=== PATIENT | female | born 1975 | race Caucasian/White ===

== ENCOUNTER 2016-11-11 10:46 | Emergency (ER) | payer MEDICAID ==
--- NOTE | 2016-11-11 10:53 | ER Document Report ---
ED Medical Screen (RME) - General Stated Complaint: PYSCH EVALUATION Notes: patient is referred over for mental health evaluation. She was referred over by [facility] for evaluation. patient admits to suicidal ideations but denies a plan, denies homicidal ideations. Admits to drug use. Admits to crack use a couple of hours ago. (+) heroin, marijuana, percocet PMH: depression, anxiety, bipolar and ADHD I have greeted and performed a rapid initial assessment of this patient. A comprehensive ED assessment and evaluation of the patient, analysis of test results and completion of the medical decision making process will be conducted by additional ED providers. TRAVEL OUTSIDE OF THE [place] IN LAST 30 DAYS: No - Related Data Allergies/Adverse Reactions: No Known Allergies Allergy (Verified 11/11/16 10:50) Past Medical History Psychiatric Medical History: Reports: Hx Attention Deficit Hyperactivity Disorder, Hx Bipolar Disorder, Hx Depression Past Surgical History: Reports: Hx Dilation and Curettage - Immunizations Hx Diphtheria, Pertussis, Tetanus Vaccination: No
[2016-11-11 11:29] LABS: ABSOLUTE BASOPHILS # (AUTO) 0.1 10^3/uL (0.0-0.2); ABSOLUTE EOSINOPHILS # (AUTO) 0.2 10^3/uL (0.0-0.6); ABSOLUTE LYMPHOCYTES (AUTO) 1.6 10^3/uL (0.5-4.7); ABSOLUTE MONOCYTES (AUTO) 0.7 10^3/uL (0.1-1.4); ABSOLUTE NEUT (AUTO) 5.6 10^3/uL (1.7-8.2); BASOPHILS % (AUTO) 1.2 % (0-2); EOSINOPHILS % (AUTO) 2.4 % (0-6); HEMATOCRIT 43.6 % (36.0-47.0); HEMOGLOBIN 14.6 g/dL (12.0-15.5); HGB HCT DIFFERENCE 0.2; LYMPHOCYTES % (AUTO) 19.6 % (13-45); MEAN CORPUSCULAR HEMOGLOBIN 29.2 pg (27.0-33.4); MEAN CORPUSCULAR HGB CONC 33.6 g/dL (32.0-36.0); MEAN CORPUSCULAR VOLUME 87 fl (80-97); MONOCYTES % (AUTO) 9.1 % (3-13); RED BLOOD COUNT 5.01 10^6/uL (3.72-5.28); RED CELL DISTRIBUTION WIDTH 13.1 % (11.5-14.0); SEGMENTED NEUTROPHILS % (AUTO) 67.7 % (42-78); WHITE BLOOD COUNT 8.3 10^3/uL (4.0-10.5)
[2016-11-11 11:48] LABS: URINE BARBITURATES SCREEN NEGATIVE; URINE METHADONE SCREEN NEGATIVE; URINE OPIATES LOW UNCONFIRMED POSITIVE; URINE PHENCYCLIDINE SCREEN NEGATIVE
[2016-11-11 11:49] LABS: APPEARANCE,URINE SLIGHTLY-CLOUDY; BILIRUBIN,URINE NEGATIVE (NEGATIVE); GLUCOSE, URINE NEGATIVE (NEGATIVE); KETONES,URINE TRACE mg/dL (NEGATIVE); LEUKOCYTE ESTERASE,URINE SMALL (NEGATIVE); NITRITE,URINE NEGATIVE (NEGATIVE); PROTEIN,URINE 30 mg/dL (NEGATIVE); URINE SPECIFIC GRAVITY 1.035
[2016-11-11 11:55] LABS: ALANINE AMINOTRANSFERASE 19 U/L (9-52); ALBUMIN 4.1 g/dL (3.5-5.0); ALKALINE PHOSPHATASE 64 U/L (38-126); ANION GAP 11 (5-19); ASPARTATE AMINO TRANSFERASE 13 U/L (14-36); BILIRUBIN,TOTAL 0.4 mg/dL (0.2-1.3); BLOOD UREA NITROGEN 14 mg/dL (7-20); CALCIUM 9.9 mg/dL (8.4-10.2); CARBON DIOXIDE 22 mmol/L (22-30); CHLORIDE 108 mmol/L (98-107); CREATININE RESULT 0.88 mg/dL (0.52-1.25); GLUCOSE 89 mg/dL (75-110); POTASSIUM 4.4 mmol/L (3.6-5.0); SODIUM 140.8 mmol/L (137-145); TOTAL PROTEIN 7.3 g/dL (6.3-8.2)
[2016-11-11 11:57] LABS: ALCOHOL < 10 mg/dL (NONE DETECTED)
--- NOTE | 2016-11-11 12:24 | ER Document Report ---
ED General - General Chief Complaint: Altered Mental Status Stated Complaint: PYSCH EVALUATION Time seen by provider: 12:19 Mode of Arrival: Ambulatory Information source: Patient Notes: 41-year-old female reports being followed by [facility] neuropsychiatric services for ADHD anxiety and bipolar disorder and presents now emergency department saying that she's had suicidal thoughts most recently this morning that she is upset about her abuse of illicit drugs or prescription drugs. She reports she used crack this morning. She reports is also abused heroin, cocaine , Percocet, and marijuana. She also reports she takes more of her prescribed medications that she should. She denies homicidal ideation or audiovisual hallucinations and says that she does not have a plan for self-harm. She reports being in normal state of health otherwise recently. Was recently diagnosed with UTI Physical Exam: General: Alert, appears well. HEENT: Normocephalic. Atraumatic. PERRLA. Extraocular movements intact. Oropharynx clear. Neck: Supple. Non-tender. Respiratory: No respiratory distress. Clear and equal breath sounds bilaterally. Cardiovascular: Regular rate and rhythm. Abdominal: Normal Inspection. Soft, non-tender. No distension. Normal Bowel Sounds. Back: Non-tender. No deformity or step off. Extremities: Moves all four extremities. Upper extremities: Normal inspection. Non-tender. Normal color. Normal ROM. Normal temperature. Lower extremities: Normal inspection. Non-tender. No edema. Normal color. Normal ROM. Normal temperature. Neurological: Speech clear mentation normal moves all extremities well Psychological: Normal affect. Tearful Skin: Warm. Dry. Normal color. TRAVEL OUTSIDE OF THE [place] IN LAST 30 DAYS: No - Related Data Allergies/Adverse Reactions: No Known Allergies Allergy (Verified 11/11/16 10:50) Past Medical History - Social History Smoking Status: Current Every Day Smoker Chew tobacco use (# tins/day): No Frequency of alcohol use: Rare Drug Abuse: Cocaine, Heroin, Marijuana Family History: Other - Patient reports extensive psychiatric history on her mother's side Patient has suicidal ideation: Yes Patient has homicidal ideation: No Renal/ Medical History: Denies: Hx Peritoneal Dialysis Psychiatric Medical History: Reports: Hx Attention Deficit Hyperactivity Disorder, Hx Bipolar Disorder, Hx Depression Past Surgical History: Reports: Hx Dilation and Curettage - Immunizations Hx Diphtheria, Pertussis, Tetanus Vaccination: No Review of Systems - Review of Systems Constitutional: denies: Chills, Fever EENT: denies: Ear pain, Throat pain Cardiovascular: denies: Chest pain, Dyspnea Respiratory: denies: Cough, Short of breath Gastrointestinal: denies: Abdominal pain, Diarrhea, Nausea, Vomiting Genitourinary: denies: Burning Female Genitourinary: denies: Musculoskeletal: denies: Back pain Hematologic/Lymphatic: denies: Swollen glands Neurological/Psychological: denies: Weakness, Numbness Physical Exam - Vital signs Vitals: Temp Pulse Resp BP Pulse Ox 97.7 F 76 21 H 150/99 H 98 11/11/16 10:52 11/11/16 10:52 11/11/16 10:52 11/11/16 10:52 11/11/16 10:52 Course - Re-evaluation Re-evalutation: 11/11/16 15:52 Patient is medically clear for mental health evaluation. Mental health evaluation concurs that while she is reporting an desire for suicide she has no plan and can be discharged in care of her with outpatient follow-up at her mental health provider [facility] tomorrow As patient recently been treated for UTI do not need retreatment - Vital Signs Vital signs: Temp Pulse Resp BP Pulse Ox 97.7 F 76 21 H 150/99 H 98 11/11/16 10:52 11/11/16 10:52 11/11/16 10:52 11/11/16 10:52 11/11/16 10:52 - Laboratory Result Diagrams: 11/11/16 11:18 11/11/16 11:18 Laboratory results interpreted by me: 11/11/16 11/11/16 11:18 11:18 Chloride 108 H AST 13 L Urine Protein 30 H Urine Ketones TRACE H Urine Urobilinogen 4.0 H Ur Leukocyte Esterase SMALL H Urine Ascorbic Acid 40 H Acetaminophen < 10 L - EKG Interpretation by Me Additional EKG results interpreted by me: 11/11/16 12:23 EKG reviewed by myself shows sinus rhythm at 69 with no acute changes Discharge - Discharge Clinical Impression: Depression Qualifiers: Depression Type: major depressive disorder Major depression recurrence: recurrent Active/Remission status: currently active Major depression episode severity: unspecified Qualified Code(s): F33.9 - Major depressive disorder, recurrent, unspecified Condition: Stable Disposition: HOME, SELF-CARE Additional Instructions: Depression Your evaluation reveals that you have mental depression. While symptoms may be vague, they often include disturbance of sleep, fatigue, loss of appetite , and general loss of interest in life. While depression may be a side effect of drugs, or a reaction to a major change in your life, many cases have no known cause. If depression is acute, and related to a major loss in your life, you can expect it to clear completely with time. If you have been depressed a long time , are prone to repeated bouts of depression or low mood, or have been thinking of suicide, get help. Depression can be treated with anti-depressant medication and counselling. Long-term depression will often take a few weeks to clear, even with appropriate medication. Follow-up care is important. Contact your physician, the hospital emergency center, crisis line, or your counsellor if you are losing control or having self-destructive thoughts. Referrals: [facility] [Provider Group] - Follow up tomorrow
--- NOTE | 2016-11-11 13:17 | PSYCHOLOGICAL NOTE ---
Psych Note - Psych Note Psych Note: Patient presented to [facility] ED saying that she's had suicidal thoughts most recently this morning that she is upset about her abuse of illicit drugs or prescription drugs. She reports she used crack this morning. She reports is also abused heroin, cocaine, Percocet, and marijuana. She also reports she takes more of her prescribed medications that she should. Patient states that she has out patient mental health with [facility]. She confirms that she is having suicidal thoughts but no plan. She states this is the first time that she is admitting out loud that she needs help with her substance abuse and is unsure if any of her family will believe she wants to get clean. She continued to disclose that she is prescribed Zoloft, Sequel, Valium, and Adderall. She would like to go inpatient for substance abuse. Patient is concerned that if she is unable to get that she will continue using. Patient's , Marc [phone], left message. Patient is alert and orientated to person place time and circumstance patient's mood is euthymic with congruent affect. Patient endorses suicidal ideation but no plan or means or intent patient denies homicidal ideation. Patient denies auditory and visual hallucinations; no delusions are noted. Thought process is logical organized and linear. Conversational speech was within normal rate tone and prosody. Eye contact was well maintained. Intellectual abilities appear to be average range. Attention and concentration are good. Insight, judgment, impulse control are poor. Impression\plan: Patient is psychiatrically cleared for discharge; she does not meet criteria for IVC per [place] GS 122C. Patient received outpatient and inpatient resource lists and discussed plan of making contact with at least 3 facilities by tomorrow. Patient will use her as support system. Patient is psychiatrically cleared for discharge. Dr. Echols was consulted and care management this patient; attending physician is in agreement with recommendations and disposition.
[2016-11-11 16:01] VITALS: BP 107/53
--- NOTE | 2016-11-11 20:05 | EKG REPORT ---
SEVERITY:- NORMAL ECG - SINUS RHYTHM : Confirmed by: Ponce William 11-Nov-2016 20:04:33
== END 2016-11-11 16:25 | disposition home or self-care (01) ==
LOC: ER 10:46
DX: F33.9 Major depressive disorder, recurrent, unspecified (principal); R41.82 Altered mental status, unspecified; F90.9 Attention-deficit hyperactivity disorder, unspecified type; F41.9 Anxiety disorder, unspecified; F31.9 Bipolar disorder, unspecified; F17.210 Nicotine dependence, cigarettes, uncomplicated
CPT/HCPCS: 36415; 80053; 80307; 81001; 84703; 85025; 93005; 93010; 99285

== ENCOUNTER 2018-01-27 10:46 | Emergency (ER) | payer SELFPAY ==
--- NOTE | 2018-01-27 11:11 | ER Document Report ---
ED Medical Screen (RME) - General Chief Complaint: Urinary Frequency Stated Complaint: VAGINAL DISCOMFORT Time Seen by Provider: 01/27/18 11:02 Mode of Arrival: Ambulatory Information source: Patient Notes: 42-year-old female presents to ED for complaint of foul-smelling urine for 2 months with no actual pain with during urination. She states she has a chronic low back pain but she has severe pelvic pain for 2 months. She states she has a IUD and she needs STD checks. States she also needs her IUD checked. Patient does have suprapubic tenderness. Patient self swab for Chlamydia gonorrhea and wet mount. A clean-catch urine was also sent. I have greeted and performed a rapid initial assessment of this patient. A comprehensive ED assessment and evaluation of the patient, analysis of test results and completion of medical decision making process will be conducted by an additional ED providers. TRAVEL OUTSIDE OF THE [place] IN LAST 30 DAYS: No - Related Data Allergies/Adverse Reactions: No Known Allergies Allergy (Verified 11/11/16 10:50) Past Medical History Renal/ Medical History: Denies: Hx Peritoneal Dialysis Psychiatric Medical History: Reports: Hx Attention Deficit Hyperactivity Disorder, Hx Bipolar Disorder, Hx Depression Past Surgical History: Reports: Hx Dilation and Curettage - Immunizations Hx Diphtheria, Pertussis, Tetanus Vaccination: No Physical Exam - Vital signs Vitals: Temp Pulse Resp BP Pulse Ox 98.2 F 81 18 113/83 99 01/27/18 10:54 01/27/18 10:54 01/27/18 10:54 01/27/18 10:54 01/27/18 10:54 Course - Vital Signs Vital signs: Temp Pulse Resp BP Pulse Ox 98.2 F 81 18 113/83 99 01/27/18 10:54 01/27/18 10:54 01/27/18 10:54 01/27/18 10:54 01/27/18 10:54
[2018-01-27 11:33] LABS: BACTERIA (WET MOUNT) 3+ BACTERIA SEEN; EPITHELIALS (WET MOUNT) 3+ EPITHELIALS SEEN; RBCS (WET MOUNT) 1+ RBCS SEEN; T.VAGINALIS (WET MOUNT) NO TRICHOMONAS SEEN; WBCS (WET MOUNT) 2+ WBCS SEEN; YEAST (WET MOUNT) NO YEAST SEEN
[2018-01-27 11:36] LABS: APPEARANCE,URINE CLOUDY; BILIRUBIN,URINE NEGATIVE (NEGATIVE); CALCIUM OXALATE CRYSTALS,URINE MODERATE /HPF; COLOR,URINE YELLOW; GLUCOSE, URINE NEGATIVE (NEGATIVE); KETONES,URINE NEGATIVE (NEGATIVE); LEUKOCYTE ESTERASE,URINE LARGE (NEGATIVE); NITRITE,URINE NEGATIVE (NEGATIVE); PROTEIN,URINE 30 mg/dL (NEGATIVE); URINE SPECIFIC GRAVITY 1.032
[2018-01-27] MEDS ORDERED: LIDOCAINE 1% INJ-PF (10 MG/ML) 30 ML SDV INJ ONE (11:38)
[2018-01-27] MEDS ORDERED: AZITHROMYCIN 250 MG TABLET PO ONE (11:38)
[2018-01-27] MEDS ORDERED: CEFTRIAXONE INJ 250 MG VIAL IM ONE (11:38)
--- NOTE | 2018-01-27 11:50 | ER Document Report ---
HPI - HPI Pain Level: 4 Notes: Patient is a 4-year-old female with a history of IV drug use who presents to the ED complaining of foul-smelling urine, bilateral lower pelvic pain 2 months. Patient states that she does have an IUD in place, that needs to be taken out at some point soon. Patient is sexually active that is unprotected. Patient states that she has not been into follow-up with the health department lately. She is still able to eat and drink, but does have a decreased p.o. intake. Patient states that she is otherwise urinating normally and having normal bowel movements. She denies any drug allergies. Denies any headache, fever, neck pain, URI, sore throat, chest pain, palpitations, syncope, cough, shortness of breath, wheeze, dyspnea, nausea/vomiting/diarrhea, urinary retention, dysuria, hematuria, back pain, loss of control of bowel or bladder, numbness/tingling, saddle anesthesia, muscle paralysis/weakness, or rash. - ROS Systems Reviewed and Negative: Yes All other systems reviewed and negative - REPRODUCTIVE Reproductive: DENIES: : - DERM Skin Color: Normal Past Medical History - General Information source: Patient - Social History Smoking Status: Current Every Day Smoker Chew tobacco use (# tins/day): No Frequency of alcohol use: None Drug Abuse: Cocaine, Marijuana, Other Family History: Other - Patient reports extensive psychiatric history on her mother's side Patient has suicidal ideation: No Patient has homicidal ideation: No Renal/ Medical History: Denies: Hx Peritoneal Dialysis Psychiatric Medical History: Reports: Hx Attention Deficit Hyperactivity Disorder, Hx Bipolar Disorder, Hx Depression Past Surgical History: Reports: Hx Dilation and Curettage - Immunizations Hx Diphtheria, Pertussis, Tetanus Vaccination: No Vertical Provider Document - CONSTITUTIONAL Agree With Documented VS: Yes Notes: PHYSICAL EXAMINATION: GENERAL: Well-appearing, well-nourished and in no acute distress. HEAD: Atraumatic, normocephalic. EYES: Pupils equal round and reactive to light, extraocular movements intact, conjunctiva are normal. ENT: Nares patent, oropharynx clear without exudates. Moist mucous membranes. No tonsillar hypertrophy or erythema. NECK: Normal range of motion, supple without lymphadenopathy LUNGS: Breath sounds clear to auscultation bilaterally and equal. No wheezes rales or rhonchi. HEART: Regular rate and rhythm without murmurs ABDOMEN: Soft, nontender, nondistended abdomen. No guarding, no rebound. No masses appreciated. Normal bowel sounds present. CVA tenderness negative bilaterally. Female ([id number]): No inguinal adenopathy. External genitalia without erythema, lesions, or masses. Vaginal mucosa pink with scant white discharge. Cervix parous, pink, and without discharge. Uterus is smooth. No adnexal tenderness. I did see the string of her IUD coming from the cervix. Extremities: No cyanosis/clubbing/edema b/l. Peripheral pulses 2+. NEUROLOGICAL: Normal speech, normal gait. PSYCH: Normal mood, normal affect. SKIN: Warm, Dry, normal turgor, no rashes or lesions noted. - INFECTION CONTROL TRAVEL OUTSIDE OF THE [place] IN LAST 30 DAYS: No Course - Re-evaluation Re-evalutation: 01/27/18 13:50 Patient is an afebrile, well-hydrated, 42-year-old female who presents to the ED with bacterial vaginosis and gonorrhea. Vitals are acceptable. PE is otherwise unremarkable. See wet mount results. See urinalysis, but I suspect that it is most likely from a gonorrhea as she is otherwise asymptomatic for urination. Chlamydia was negative while gonorrhea was positive. Transvaginal ultrasound was unremarkable for any acute pathology. Even though there is no obvious cervical motion tenderness on exam, patient does have lower pelvic pain , so I will treat her for PID due to the low threshold and high risk lifestyle. Patient was treated with Rocephin IM as well as Zithromax p.o. I will be sending her home with Flagyl and doxycycline as well according to up-to-date for PID treatment. HCG was negative. Patient is tolerating p.o. without difficulties. No other labs or imaging warranted at this time based on H&P. Low suspicion/risk for acute appendicitis, bowel obstruction, acute cholecystitis, acute cholangitis, perforated diverticulitis, incarcerated hernia , pancreatitis, perforated ulcer, peritonitis, sepsis, ectopic , tubo- ovarian abscess, ovarian torsion, or other systemic emergent condition at this time. Patient is aware that her condition can change from initial presentation and she needs to monitor symptoms closely and seek medical attention if any acute changes. Conservative measures otherwise for symptoms. Recheck with OBGYN in 3-5 days. Recheck with your PCM in 3-5 days. Return to the ED with any worsening/concerning symptoms otherwise as reviewed in discharge. Patient is in agreement. - Vital Signs Vital signs: Temp Pulse Resp BP Pulse Ox 98.2 F 81 18 113/83 99 01/27/18 10:54 01/27/18 10:54 01/27/18 10:54 01/27/18 10:54 01/27/18 10:54 - Laboratory Laboratory results interpreted by me: 01/27/18 11:08 Urine Protein 30 H Urine Urobilinogen 2.0 H Ur Leukocyte Esterase LARGE H Urine Ascorbic Acid 20 H Procedures - Pelvic Exam Pelvic exam Time completed: 12:45 - pt performed pre-self swab during her RME. Bimanual exam performed: Yes - negative Witnessed by: Nurse Marcano Discharge - Discharge Clinical Impression: Gonorrhea, Pelvic pain, Bacterial vaginosis Condition: Stable Disposition: HOME, SELF-CARE Instructions: Gonorrhea ([facility]), Doxycycline ([facility]), Pelvic Inflammatory Disease ( [facility]), Vaginosis, Bacterial ([facility]), Metronidazole ([facility]) Additional Instructions: Push fluids (i.e. water, cranberry juice) Proper hygenic technique Keep the skin clean Safe sexual practices with condoms everytime Tylenol/ibuprofen as needed Check in with the health department this week for further testing* Abstain from sexual intercourse for at least 2 weeks and notify your partner(s) Return immediately if symptoms worsen F/u with your PCM in 3-5 days for a recheck Schedule a consult with OBGYN Return to the ED with any development of RUIZ/fever, trouble with vision, eye redness, worsening pain, urethral discharge, urinary retention, blood in the urine, flank pain, abdominal pain, n/v, Chest Pain, shortness of breath, joint pains, trouble breathing, or any other worsening/concerning symptoms as needed otherwise. Prescriptions: Doxycycline Hyclate 100 mg PO BID #28 capsule Metronidazole [Flagyl] 500 mg PO BID #14 tablet Ondansetron [Zofran Odt 4 mg Tablet] 1 - 2 tab PO Q4H PRN #15 tab.rapdis PRN Reason: For Nausea/Vomiting [facility]NO [facility]AL MD] - Follow up in 3-5 days [facility] [Provider Group] - Follow up in 3-5 days
[2018-01-27] MEDS ORDERED: ACETAMINOPHEN 325 MG TABLET PO ONE (12:10)
[2018-01-27 12:57] LABS: CHLAM PCR NOT DETECTED (NOT DETECT); GON PCR DETECTED (NOT DETECT)
--- NOTE | 2018-01-27 13:21 | RADIOLOGY REPORT (SQ) ---
EXAM DESCRIPTION: U/S NON-OB PELVIS TV W/O DOP COMPLETED DATE/TIME: 01/27/2018 1:08 pm REASON FOR STUDY: Foul-smelling urine severe pelvic pain 2 months COMPARISON: Pelvic ultrasound 10/29/2014 TECHNIQUE: Dynamic and static grayscale images acquired of the pelvis via transvaginal approach and recorded on PACS. Additional selected color Doppler and spectral images recorded. LIMITATIONS: None. FINDINGS: UTERUS: Contour normal. No mass. Uterus is 8 x 6 x 5 cm in size ENDOMETRIAL STRIPE: No focal or generalized thickening. No masses. Endometrial stripe 3 mm in thickn ess. An IUD is present in the endometrial canal in good positioning. CERVIX: Closed, 2 cm nabothian cyst is unchanged from 2014. RIGHT OVARY AND DOPPLER: Normal size, 2.6 x 1.7 x 1.5 cm in size. No worrisome masses. Normal arteria l vascular flow without evidence for torsion. LEFT OVARY AND DOPPLER: Normal size, 2.8 x 1.7 x 1.4 cm in size. No worrisome masses. Normal arterial vascular flow without evidence for torsion. FREE FLUID: None noted. OTHER: No other significant finding. IMPRESSION: THE IUD IN THE ENDOMETRIAL CANAL IN GOOD POSITIONING. 2 CM NABOTHIAN CYSTS IN THE CERVIX UNCHANGED FROM 2014. OTHERWISE, UNREMARKABLE TRANSVAGINAL PELVIC ULTRASOUND. TECHNICAL DOCUMENTATION: JOB ID: [id number] [employer]- All Rights Reserved Rev-01/20 Reading location - IP/workstation name: [email or web address]
[2018-01-27] MEDS ORDERED: ONDANSETRON 4 MG TAB.RAPDIS PO ONE (13:47)
[2018-01-27 15:31] VITALS: BP 108/66
== END 2018-01-27 15:31 | disposition home or self-care (01) ==
LOC: ER 10:46
DX: N76.0 Acute vaginitis (principal); B96.89 Other specified bacterial agents as the cause of diseases classified elsewhere; A54.9 Gonococcal infection, unspecified; R10.2 Pelvic and perineal pain; F17.200 Nicotine dependence, unspecified, uncomplicated; Z97.5 Presence of (intrauterine) contraceptive device
CPT/HCPCS: 99284; 96372; 87210; 81025; 81001; 87491; 87591; 76830; S0119; J3490; J0696

== ENCOUNTER 2018-04-24 12:20 | Emergency (ER) | payer SELFPAY ==
--- NOTE | 2018-04-24 13:07 | ER Document Report ---
ED Psych Disorder / Suicide - General Chief Complaint: Suicidal Ideation Stated Complaint: SUICIDAL IDEATION Time Seen by Provider: 04/24/18 13:04 Notes: 43-year-old female to the emergency department for suicidal ideation and substance abuse. Patient states that she shoot heroin and ice. She is estranged from her family. Her children father committed suicide recently. Patient states she has nothing to live for. Cannot keep her active together. She has been living with a bunch of drug abusers for the last 5 months. Family member was able to rescue her and brought her here. Patient states that she sells her Xanax and her Adderall that she gets for drug money. She took a revolver that had bullet in the chamber spun the revolver and pulled the trigger yesterday hoping that it would blow her head off. TRAVEL OUTSIDE OF THE [place] IN LAST 30 DAYS: No - HPI Patient complains to provider of: Agitated, Suicidal ideation Onset was: Gradual Severity: Severe Suicide Risk Factors: Depressed, Lethal weapons in home, Substance abuse, Other - Recent suicide in the family - Related Data Allergies/Adverse Reactions: No Known Allergies Allergy (Verified 04/24/18 13:02) Past Medical History - General Information source: Patient - Social History Smoking Status: Current Every Day Smoker Chew tobacco use (# tins/day): No Frequency of alcohol use: Occasional Drug Abuse: Heroin, Methamphetamine, Other Family History: Other - Patient reports extensive psychiatric history on her mother's side Patient has suicidal ideation: Yes Patient has homicidal ideation: No Renal/ Medical History: Denies: Hx Peritoneal Dialysis Psychiatric Medical History: Reports: Hx Attention Deficit Hyperactivity Disorder, Hx Bipolar Disorder, Hx Depression Past Surgical History: Reports: Hx Dilation and Curettage - Immunizations Hx Diphtheria, Pertussis, Tetanus Vaccination: No Review of Systems - Review of Systems Notes: Constitutional: denies: Chills, Diaphoresis, Fever, Malaise, Weakness EENT: denies: Eye discharge, Blurred vision, Tearing, Double vision, Nose congestion, Nose discharge, Throat swelling, Mouth pain Cardiovascular: denies: Palpitations, Heart racing, Orthopnea, Dyspnea, Chest pain. No prior history of endocarditis. Respiratory: denies: Cough, Hurts to breathe, Wheezing, Shortness of breath Gastrointestinal: denies: Abdominal pain, Diarrhea, Nausea, Vomiting, Black stools, bright red blood in stool Genitourinary: denies: Burning, Dysuria, Discharge, Frequency, Flank pain, Hematuria Musculoskeletal: Chronic low back pain., Denies any swelling of her joints. Hematologic/Lymphatic: denies: Anemia, Easy bleeding, Easy bruising, Blood clots Neurological/Psychological: Significant for polysubstance abuse, depression, suicidal ideation Skin: No lesions, no masses, no skin breakdown, no abscesses Physical Exam - Vital signs Vitals: Temp Pulse Resp BP Pulse Ox 98.1 F 86 16 105/63 99 04/24/18 12:32 04/24/18 12:32 04/24/18 12:32 04/24/18 12:32 04/24/18 12:32 Interpretation: Normal - General General appearance: Appears well, Alert - HEENT Head: Normocephalic, Atraumatic Eyes: Normal Pupils: PERRL - Respiratory Respiratory status: No respiratory distress Chest status: Nontender Breath sounds: Normal Chest palpation: Normal - Cardiovascular Rhythm: Regular Heart sounds: Normal auscultation Murmur: No - Abdominal Inspection: Normal Distension: No distension Bowel sounds: Normal Tenderness: Nontender Organomegaly: No organomegaly - Back Back: Normal, Nontender - Extremities General upper extremity: Normal inspection, Nontender, Normal color, Normal ROM , Normal temperature General lower extremity: Normal inspection, Nontender, Normal color, Normal ROM , Normal temperature, Normal weight bearing. No: Jose's sign - Neurological Neuro grossly intact: Yes Cognition: Normal Orientation: AAOx4 Marvell Coma Scale Eye Opening: Spontaneous Marvell Coma Scale Verbal: Oriented Timothy Coma Scale Motor: Obeys Commands Timothy Coma Scale Total: 15 Speech: Normal Motor strength normal: LUE, RUE, LLE, RLE Sensory: Normal - Psychological Notes: Patient is tearful, crying, depressed. Verbalizes that she put a gun to her head and pulled the trigger but it did not go off. - Skin Skin Temperature: Warm Skin Moisture: Dry Skin Color: Normal Course - Re-evaluation Re-evalutation: 04/24/18 16:11 At this time patient has a very clear high risk activity with substance abuse, recent of a loved one, placing a gun to her head and pulling the trigger and generally feeling a sense of helplessness and hopelessness. Patient will need to be seen and evaluated and treated. I have no problem at this time placing her on involuntary commitment proceedings as she has 2 criteria 1. Substance abuse 2. Suicidal patient with suicidal gesture and possible interpretation of suicide attempt. 04/24/18 18:19 Laboratory 04/24/18 04/24/18 04/24/18 13:20 13:20 13:20 WBC 5.9 RBC 4.73 Hgb 14.0 Hct 41.4 MCV 88 MCH 29.6 MCHC 33.8 RDW 13.7 Plt Count 262 Seg Neutrophils % 68.5 Lymphocytes % 21.7 Monocytes % 6.1 Eosinophils % 2.6 Basophils % 1.1 Absolute Neutrophils 4.0 Absolute Lymphocytes 1.3 Absolute Monocytes 0.4 Absolute Eosinophils 0.2 Absolute Basophils 0.1 Sodium 143.9 Potassium 4.1 Chloride 107 Carbon Dioxide 25 Anion Gap 12 BUN 15 Creatinine 1.11 Est GFR ( Amer) > 60 Est GFR (Non-Af Amer) 54 L Glucose 89 Calcium 9.0 Total Bilirubin 0.4 Direct Bilirubin 0.3 Neonat Total Bilirubin Not Reportable Neonat Direct Bilirubin Not Reportable Neonat Indirect Bili Not Reportable AST 13 L ALT 18 Alkaline Phosphatase 48 Total Protein 6.4 Albumin 3.5 Urine HCG, Qual Salicylates < 1.0 L Urine Opiates Screen UNCONFIRMED POSITIVE Urine Methadone Screen NEGATIVE Acetaminophen < 10 L Ur Barbiturates Screen NEGATIVE Ur Phencyclidine Scrn NEGATIVE Ur Amphetamines Screen UNCONFIRMED POSITIVE U Benzodiazepines Scrn UNCONFIRMED POSITIVE Urine Cocaine Screen UNCONFIRMED POSITIVE U Marijuana (THC) Screen UNCONFIRMED POSITIVE Serum Alcohol < 10 HIV 1&2 Antibody NEGATIVE 04/24/18 13:20 WBC RBC Hgb Hct MCV MCH MCHC RDW Plt Count Seg Neutrophils % Lymphocytes % Monocytes % Eosinophils % Basophils % Absolute Neutrophils Absolute Lymphocytes Absolute Monocytes Absolute Eosinophils Absolute Basophils Sodium Potassium Chloride Carbon Dioxide Anion Gap BUN Creatinine Est GFR ( Amer) Est GFR (Non-Af Amer) Glucose Calcium Total Bilirubin Direct Bilirubin Neonat Total Bilirubin Neonat Direct Bilirubin Neonat Indirect Bili AST ALT Alkaline Phosphatase Total Protein Albumin Urine HCG, Qual NEGATIVE Salicylates Urine Opiates Screen Urine Methadone Screen Acetaminophen Ur Barbiturates Screen Ur Phencyclidine Scrn Ur Amphetamines Screen U Benzodiazepines Scrn Urine Cocaine Screen U Marijuana (THC) Screen Serum Alcohol HIV 1&2 Antibody - Vital Signs Vital signs: Temp Pulse Resp BP Pulse Ox 98.1 F 86 16 105/63 99 04/24/18 12:32 04/24/18 12:32 04/24/18 12:32 04/24/18 12:32 04/24/18 12:32 - Laboratory Result Diagrams: 04/24/18 13:20 04/24/18 13:20 Laboratory results interpreted by me: 04/24/18 13:20 Est GFR (Non-Af Amer) 54 L AST 13 L Salicylates < 1.0 L Acetaminophen < 10 L Discharge - Discharge Clinical Impression: Polysubstance abuse Opioid dependence Qualifiers: Substance use status: with unspecified opioid-induced disorder Qualified Code(s ): F11.29 - Opioid dependence with unspecified opioid-induced disorder Major depressive disorder Qualifiers: Major depression recurrence: unspecified whether recurrent Active/Remission status: currently active Major depression episode severity: moderate Qualified Code(s): F32.1 - Major depressive disorder, single episode, moderate Condition: Good
[2018-04-24 14:10] LABS: ABSOLUTE BASOPHILS # (AUTO) 0.1 10^3/uL (0.0-0.2); ABSOLUTE EOSINOPHILS # (AUTO) 0.2 10^3/uL (0.0-0.6); ABSOLUTE LYMPHOCYTES (AUTO) 1.3 10^3/uL (0.5-4.7); ABSOLUTE MONOCYTES (AUTO) 0.4 10^3/uL (0.1-1.4); BASOPHILS % (AUTO) 1.1 % (0-2); EOSINOPHILS % (AUTO) 2.6 % (0-6); HEMATOCRIT 41.4 % (36.0-47.0); LYMPHOCYTES % (AUTO) 21.7 % (13-45); MEAN CORPUSCULAR HEMOGLOBIN 29.6 pg (27.0-33.4); MEAN CORPUSCULAR HGB CONC 33.8 g/dL (32.0-36.0); MEAN CORPUSCULAR VOLUME 88 fl (80-97); MONOCYTES % (AUTO) 6.1 % (3-13); PLATELET COUNT 262 10^3/uL (150-450); RED BLOOD COUNT 4.73 10^6/uL (3.72-5.28); RED CELL DISTRIBUTION WIDTH 13.7 % (11.5-14.0); SEGMENTED NEUTROPHILS % (AUTO) 68.5 % (42-78); TOTAL CELLS COUNTED % (AUTO) 100 %; URINE AMPHETAMINES SCREEN UNCONFIRMED POSITIVE; URINE BARBITURATES SCREEN NEGATIVE; URINE BENZODIAZEPINES SCREEN UNCONFIRMED POSITIVE; URINE COCAINE SCREEN UNCONFIRMED POSITIVE; URINE MARIJUANA (THC) SCREEN UNCONFIRMED POSITIVE; URINE METHADONE SCREEN NEGATIVE; URINE PHENCYCLIDINE SCREEN NEGATIVE; WHITE BLOOD COUNT 5.9 10^3/uL (4.0-10.5)
[2018-04-24] MEDS ORDERED: LORAZEPAM 1 MG TABLET PO ONE (14:17)
[2018-04-24 14:28] LABS: ALANINE AMINOTRANSFERASE 18 U/L (9-52); ALBUMIN 3.5 g/dL (3.5-5.0); ALKALINE PHOSPHATASE 48 U/L (38-126); ANION GAP 12 (5-19); ASPARTATE AMINO TRANSFERASE 13 U/L (14-36); BILIRUBIN,DIRECT 0.3 mg/dL (0.0-0.4); BILIRUBIN,TOTAL 0.4 mg/dL (0.2-1.3); BLOOD UREA NITROGEN 15 mg/dL (7-20); CARBON DIOXIDE 25 mmol/L (22-30); CHLORIDE 107 mmol/L (98-107); GLUCOSE 89 mg/dL (75-110); POTASSIUM 4.1 mmol/L (3.6-5.0); SODIUM 143.9 mmol/L (137-145); TOTAL PROTEIN 6.4 g/dL (6.3-8.2)
[2018-04-24 14:32] LABS: ACETAMINOPHEN < 10 ug/mL (10-30); ALCOHOL < 10 mg/dL (NONE DETECTED); SALICYLATE < 1.0 mg/dL (2.0-20.0)
[2018-04-24] MEDS ORDERED: NICOTINE 21 MG/24 HR PATCH.TD24 TD ONE (16:19)
[2018-04-24] MEDS ORDERED: LORAZEPAM 1 MG TABLET PO PRN (16:20)
[2018-04-24 18:23] LABS: AMORPHOUS SEDIMENT,URINE TRACE /HPF; APPEARANCE,URINE CLOUDY; BILIRUBIN,URINE NEGATIVE (NEGATIVE); CALCIUM OXALATE CRYSTALS,URINE MANY /HPF; COLOR,URINE AMBER; GLUCOSE, URINE NEGATIVE (NEGATIVE); KETONES,URINE NEGATIVE (NEGATIVE); LEUKOCYTE ESTERASE,URINE NEGATIVE (NEGATIVE); NITRITE,URINE NEGATIVE (NEGATIVE); PROTEIN,URINE 30 mg/dL (NEGATIVE)
[2018-04-25 00:09] LABS: CHLAM PCR NOT DETECTED (NOT DETECT); GON PCR NOT DETECTED (NOT DETECT)
[2018-04-25] MEDS: LORAZEPAM 1 MG TABLET PO PRN ×6 (00:15→23:34)
--- NOTE | 2018-04-25 08:54 | EKG REPORT ---
SEVERITY:- NORMAL ECG - SINUS RHYTHM : Confirmed by: Ponce William 25-Apr-2018 08:53:52
[2018-04-25] MEDS ORDERED: NICOTINE 21 MG/24 HR PATCH.TD24 TD ONE (11:55)
--- NOTE | 2018-04-25 15:53 | ER Document Report ---
Doctor's Note Notes: 04/25/18 15:51 Rounds: Chart reviewed and patient interviewed. Patient is calm and cooperative. Only complains of general body aches and headache. Lab studies are positive for opiates, amphetamines, benzos, cocaine, and cannabis, but all other labs are all essentially normal. Vital signs all are essentially normal. Patient appears to be medically stable for transfer or discharge. Stephanie Patel MD
--- NOTE | 2018-04-25 16:00 | PSYCHOLOGICAL NOTE ---
Psych Note - Psych Note Psych Note: Reason for Consult: 1st Re-evaluation, SI with plan of Estonian Roulette, Polysubstance Use Contact Permissions: Grandmother Awilda Pagent [phone] Patient is a 43 year old female who is in the ED on a 24 hour IVC Petition for playing Estonian Roulette with a revolver that had a bullet in the chamber, she spun revolver, pulled the trigger and had reported she hoped it would blow her head off. UDS was positive for Opiates, Amphetamines, Benzodiazepines, Cocaine and Cannabis. She stated she remembered what she did and understood why it was such a bid deal. She stated "I am not feeling that way today." She denied current and previous SA treatment. She admitted she gets her Adderall and Xanax filled, will take some (not as directed) and will sell most. She noted she is supposed to also be prescribed Serquel 300MG QHS and Zoloft 300MG QD. She stated "those two medications made me feel the most clear headed." She stated "If I get back on those maybe I will have a clear mind and not use substances." She denied having access to the gun/revolver, would not provide the person's name it belonged to, stated that person had been where she was but takes the gun with them. She noted her Aunt/Family, IFS MCM and her psychiatrist (Jamee Centeno at [facility] has not seen her in 4 months per patient) all told her to come to the ED. She denied current SI and commented "I don't want to be let out, I need to get into some type of program, I want help." She stated she thought she had gotten a bed at the [facility] not long ago for detox but once there no bed available. She admitted to having been using "Ice AKA Crystal Meth" daily. She inquired about her STD testing (concern regarding her well being suggests future thinking and hope). Patient was alert and oriented to person, place and situation. She had to ask what time it was. Mood was depressed with flat affect (though may be due to coming off multiple substances and/or withdrawing). She denied current SI/HI and stated she did not have access to that gun/revolver but would not give identifying information so this clinician could confirm. She did not appear to be responding to internal stimuli as evidenced by fair eye contact, answering questions appropriately when addressed and carrying on dialogue conversation. Thought processes were linear and organized. Conversational speech was within normal limits for rate, tone and prosody. Intellectual abilities are estimated to be average. Insight, judgment and impulse control are better today given she has had a chance to sober up from 3-5 different substances and recognize her need for both annd SA treatment. Patient gave verbal consent to contact her 81 year old grandmother. Grandmother identified patient's parents when patient was age 3 and grandmother has been like a second mother to patient. She stated patient's mother and maternal Aunts used substances. She acknowledged patient's mother from Cancer and patient has her ashes. Grandmother reported patient's first , they had remained friends, killed himself February 13, 2018. She stated patient's current , they are still legally but not together, got out of longterm a few months back, is straightening his life out and he has the 2 younger children. Grandmother identified these are some things she believes are areas of concern for patient. She noted she recently "paid $15,000 to help get patient back on her feet and this was not the first time she had done this." She mentioned having paid for doctors visits, medications, rent and a car with car insurance. She stated patient is "struggling." She noted patient "informed her patient has been using drugs." She stated "there is concern that patient is being trafficked or prostituted for her living arrangements and drugs." She stated patient's reached out to who did go to the home where patient had been staying to ask her if she was there against her will and patient stated she was there willingly. Grandmother stated just before was getting out of longterm a few months back patient had left her children with people she was staying with to go get treatment at the [facility] in [place] but ended up at the place where there is concern she is being trafficked. She stated it took her (grandmother) and patient's other grandmother texting patient if she didn't come take care of her children they would go to [facility]. 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 She stated "I have bad nerves also it runs in the family." She stated patient " needs help with Mental Health as this is where the substance use came from." Diagnosis: V62.82 (Z63.4) Uncomplicated Bereavement (mother who from Cancer unsure how old patient was, 1st /still friends February 2018 Suicide) 311 (F32.9) Unspecified Depressive Disorder Polysubstance Use 292.9 (F11.99) Unspecified Opioid Related Disorder 292.9 (F15.99) Unspecified Amphetamine or other Stimulant Related Disorder 292.9 (F14.99) Unspecified Cocaine Related Disorder 292.9 (F13.99) Unspecified sedative, hypnotic or anxiolytic Related Disorder 292.9 (F12.99) Unspecified Cannabis Related Disorder R/O V62.89 (Z65.4) Victim of crime (if being trafficked/prostituted) R/O 309.81 (F43.10) Posttraumatic Stress Disorder Impression/Plan: Recommendation to hold patient another night while attempting to get voluntary detox/rehab placement. There are several areas of risk which include: patient's first who she was still good friends with killed himself February 2018, there are childhood traumas (parents separation)/other traumas ( of mother to Cancer) that have likely not been dealt with, she is a substance user, the night before last she got to a point of playing News in Shorts due to her living situation, and there is concern patient is being trafficked or prostituted for her current living arrangement and drugs. Patient had been on a 24 hour IVC Petition which will tonight. Patient had a phone interview with the [facility] they just do not have any bed availability. Plan is to do a Jose Saldaña voluntary referral tomorrow (04/26). [facility] ED Recreation Professor/Elevator Repairer also involved helping to provide resources for treatment. Patient denied current SI/HI, she has had time to sober up from multiple substances and there was no observed psychosis. She stated she wanted treatment and preferred to have something set up upon discharge. Consulted with Dr. Gilbert regarding the management and care of patient. ED Physician in agreement with recommendations.
[2018-04-25] MEDS: ACETAMINOPHEN 325 MG TABLET PO PRN (16:39)
[2018-04-26] MEDS: ACETAMINOPHEN 325 MG TABLET PO PRN ×4 (00:36→18:23)
[2018-04-26 04:38] LABS: HEPATITIS A AB IGM Negative (Negative); HEPATITIS B CORE AB IGM Negative (Negative); HEPATITS B SURFACE ANTIGEN Negative (Negative)
[2018-04-26] MEDS: LORAZEPAM 1 MG TABLET PO PRN ×4 (05:54→18:20)
--- NOTE | 2018-04-26 09:38 | ER Document Report ---
Doctor's Note Notes: 04/26/18 09:37 Rounds: Chart reviewed. Patient in the shower so not interviewed. Blood pressure was a little bit low this morning at 93/57 although the patient has been acting normally, according to the nursing staff. Other vital signs are all normal. No new labs to review. Patient appears to be medically stable for transfer or discharge. Stephanie Patel MD
[2018-04-26] MEDS ORDERED: NICOTINE 21 MG/24 HR PATCH.TD24 TD ONE (12:03)
--- NOTE | 2018-04-26 16:51 | PSYCHOLOGICAL NOTE ---
Psych Note - Psych Note Psych Note: Reason for Consult:Suicidal ideation; Polysubstance Use Contact Permissions: Grandmother Awilda pagent [phone] Patient is a 43 year old female who is in the ED on a 24 hour IVC Petition for playing Croatian Roulette with a revolver that had a bullet in the chamber, she spun revolver, pulled the trigger and had reported she hoped it would blow her head off. UDS was positive for Opiates, Amphetamines, Benzodiazepines, Cocaine and Cannabis. Checking conducted with patient Patient discloses some anxiety and difficulties in struggling with wanting to leave just to have a cigarette. She continued to report wanting assistance in sobriety. No other concerns at this time. Medication recommendations per [facility]'s contracted psychiatrist Dr. Néstor NEVES are as follows 1. Effexor 37.5 mg daily Diagnosis Polysubstance abuse 292.84 (F13.44) substance-induced depressive disorder; sedative, anxiolytic ( F15.14); amphetamine, methamphetamine (F14.14); cocaine Impression\plan: Patient is recommended to continue on mental health hold for observation. Patient is being looked at for placement at a rehab facility where they can assist with continued services/placement. Probable discharge tomorrow to go to facility. Dr. Echols was consulted and the care management of this patient; attending physician is agreement with recommendations and disposition.
[2018-04-26] MEDS ORDERED: VENLAFAXINE HCL 37.5 MG CAP.SR.24H PO SCH (17:00)
[2018-04-26 18:02] LABS: HEPATITIS C VIRUS ANTIBODY <0.1 s/co ratio (0.0-0.9)
[2018-04-26] MEDS ORDERED: DIPHENHYDRAMINE HCL 50 MG CAPSULE PO ONE (21:22)
[2018-04-27 06:12] VITALS: BP 100/68
[2018-04-27] MEDS: VENLAFAXINE HCL 37.5 MG CAP.SR.24H PO SCH ×2 (09:34→09:35)
[2018-04-27] MEDS ORDERED: NICOTINE 21 MG/24 HR PATCH.TD24 ONE (12:20)
--- NOTE | 2018-04-27 12:55 | PSYCHOLOGICAL NOTE ---
Psych Note - Psych Note Psych Note: Reason for Consult:Suicidal ideation; Polysubstance Use Contact Permissions: Grandmother Awilda pagent [phone] Patient is a 43 year old female who is in the ED on a 24 hour IVC Petition for playing Ecuadorean Roulette with a revolver that had a bullet in the chamber, she spun revolver, pulled the trigger and had reported she hoped it would blow her head off. UDS was positive for Opiates, Amphetamines, Benzodiazepines, Cocaine and Cannabis. Checking conducted with patient Patient has completed the application packet and essay for admission into [facility]. She has a telephone interview at 10am. Patient has been accepted and transportation is being coordinated. Medication recommendations per [facility]'s contracted psychiatrist Dr. Néstor NEVES are as follows 1. Effexor 37.5 mg daily Diagnosis V62.82 (Z63.4) Uncomplicated Bereavement (mother who from Cancer unsure how old patient was, 1st /still friends February 2018 Suicide) 292.84 (F13.44) substance-induced depressive disorder; sedative, anxiolytic ( F15.14); amphetamine, methamphetamine (F14.14); cocaine Polysubstance Use 292.9 (F11.99) Unspecified Opioid Related Disorder 292.9 (F15.99) Unspecified Amphetamine or other Stimulant Related Disorder 292.9 (F14.99) Unspecified Cocaine Related Disorder 292.9 (F13.99) Unspecified sedative, hypnotic or anxiolytic Related Disorder 292.9 (F12.99) Unspecified Cannabis Related Disorder R/O V62.89 (Z65.4) Victim of crime (if being trafficked/prostituted) R/O 309.81 (F43.10) Posttraumatic Stress Disorder Impression\plan: Patient is cleared from acute psychiatric services. Patient has been accepted for placement at a rehab facility, [facility], where they can assist with continued services/placement. A family friend discloses they will transport to facility. Dr. Echols was consulted and the care management of this patient; attending physician is agreement with recommendations and disposition.
--- NOTE | 2018-04-27 14:16 | ER Document Report ---
Doctor's Note Notes: 04/27/18 14:15 Patient resting comfortably, affect appropriate, smiling and interactive, she does report feeling much better, the plan is for patient to be discharged from this department and enter into a rehab facility, arrangements have been made and patient is accepted, patient is medically stable for discharge at this time and and agreement with this plan Discharge - Discharge Clinical Impression: Polysubstance abuse Opioid dependence Qualifiers: Substance use status: with unspecified opioid-induced disorder Qualified Code(s ): F11.29 - Opioid dependence with unspecified opioid-induced disorder Major depressive disorder Qualifiers: Major depression recurrence: unspecified whether recurrent Active/Remission status: currently active Major depression episode severity: moderate Qualified Code(s): F32.1 - Major depressive disorder, single episode, moderate Condition: Good Disposition: HOME, SELF-CARE Additional Instructions: You have been evaluated by both medical and behavioral health teams and have been deemed appropriate for discharge. Is recommended you follow through with rehab for continued substance abuse treatment. You have been prescribed Effexor 37.5 mg daily please take as directed. COCAINE ABUSE: Cocaine causes many dangerous medical problems. Problems can occur even with "usual" amounts. Cocaine affects judgement, creating a sense of invulnerability. Cocaine users often make bad decisions that seem "great" at the time. Most cocaine users eventually will be hurt by bad job performance, damaged personal relations, crime, and unsafe sexual practices. Toxic effects of cocaine can include seizures, hallucinations, delusions, high blood pressure, heart damage, or sudden . There's always the risk of a "bad batch." But heart attacks, brain hemorrhages, or cardiac arrest can occur unpredictably even with "normal" use. Injection of cocaine is risky for abscesses, endocarditis (heart infection) , pneumonia, and AIDS. Withdrawal from cocaine often causes anxiety and drug cravings. Some users become paranoid and psychotic. Many treatment programs are available, but you must make the decision to quit. Medication can be prescribed to control the symptoms of cocaine toxicity (beta blockers or benzodiazepines). Withdrawal symptoms may require tranquilizers. NARCOTIC / OPIOD ABUSE: Narcotics and opiods are pain-relieving drugs that are often abused. They are addicting. Narcotics cause euphoria, but it often takes increasing amounts to "feel good" and avoid withdrawal symptoms. Overdose of narcotics causes small pupils, coma, and decreased breathing. It's a common cause of . Purity of street narcotics is unpredictable. Injection of narcotics is risky for abscesses, endocarditis (heart infection), pneumonia, and AIDS. Withdrawal from narcotics causes goose bumps, watery mouth, sweating, nasal congestion, muscle aches, abdominal cramps, vomiting, and diarrhea. There 's often restlessness and confusion. Treatment programs are available, but you must make the decision to quit. Medication (such as clonidine) can be prescribed to control the symptoms of withdrawal. AMPHETAMINE / METHAMPHETAMINE ABUSE: Amphetamines are addicting stimulants. Amphetamines overstimulate the nervous system and give a false feeling of power and mastery. These drugs may be obtained as prescription pills for weight loss, narcolepsy, or attention- deficit disorder. More often they're bought as an illegal street drug, methamphetamine (crank, crystal, speed). Using amphetamines repeatedly can lead to serious medical problems including malnutrition, severe depression, and paranoia. It can take increasing amounts to feel good. Eventually, there will be a "burn out." When you go off amphetamines there is a period of depression that may last for weeks or even months. High doses of amphetamines can cause seizures, confusion, hallucinations, delusions, high blood pressure, muscle damage, heart damage, or sudden . Many times these deadly complications occur even with "normal" doses. Injection of amphetamines is risky for developing abscesses, endocarditis ( heart infection), pneumonia, and AIDS. Withdrawal from amphetamines often causes anxiety, depression, and drug cravings. Some users become paranoid and psychotic. There may be cramps, nausea , and vomiting. Many treatment programs are available, but you must make the decision to quit. Medication can be prescribed to control the symptoms of amphetamine toxicity (beta blockers or benzodiazepines). Withdrawal symptoms may require tranquilizers. DEPRESSION: Your evaluation reveals that you have mental depression. While symptoms may be vague, they often include disturbance of sleep, fatigue, loss of appetite , and general loss of interest in life. While depression may be a side effect of drugs, or a reaction to a major change in your life, many cases have no known cause. If depression is acute, and related to a major loss in your life, you can expect it to clear completely with time. If you have been depressed a long time , are prone to repeated bouts of depression or low mood, or have been thinking of suicide, get help. Depression can be treated with anti-depressant medication and counselling. Long-term depression will often take a few weeks to clear, even with appropriate medication. Follow-up care is important. SUICIDAL IDEATION: Suicidal ideation is a common medical term for thoughts about suicide, which may be as detailed as a formulated plan, without the suicidal act itself. Although most people who undergo suicidal ideation do not commit suicide, some go on to make suicide attempts. The range of suicidal ideation varies greatly from fleeting to detailed planning, role playing, and unsuccessful attempts. While thoughts about suicide are common, most people do not carry out serious actions to commit suicide. Based upon your evaluation and discussion with you, we do not believe you are currently at risk to act upon your thoughts of suicide. You have agreed to return to the Emergency Department, at any time , if you feel inclined to act upon your suicidal thoughts. FOLLOW-UP CARE: If you experience worsening or a significant change in your symptoms, notify the physician immediately or return to the Emergency Department at any time for re-evaluation. Prescriptions: Venlafaxine HCl ER [Effexor Xr 37.5 mg Cap.sr] 37.5 mg PO DAILY #90 cap.sr.24h Referrals: [facility] [Outside] - Follow up as needed
--- NOTE | 2018-05-07 10:00 | PSYCHOLOGICAL NOTE ---
Psych Note - Psych Note Psych Note: Reason for Consult:Suicidal ideation; Polysubstance Use Contact Permissions: Grandmother Awilda pagent [phone] Patient is a 43 year old female who is in the ED on a 24 hour IVC Petition for playing [place] [employer] with a revolver that had a bullet in the chamber, she spun revolver, pulled the trigger and had reported she hoped it would blow her head off. UDS was positive for Opiates, Amphetamines, Benzodiazepines, Cocaine and Cannabis. Patient disclosed that she is trying to get help for both her mental health and substance abuse. She reports that she has been abusing her prescription Adderall and Seroquel in addition to "heroin and Ice." She reports she has been using everyday as often as she can obtain it for the last 5 months. She reports she let her children go with her ex- and has since used nonstop. She disclosed the of her first , children's father, and best friend since school killed himself in February and she since she was in the middle of her months long rendon she is now coming to terms with her emotions on his and the fact she was "so high" she was not there; " I barely remember being told and just went back and used some more." She reports she has been misusing/ using drugs for 15 years and has never been to substance abuse treatment or had inpatient psychiatric treatment. She does have a provider she sees "on and off " over the last 5 years at [facility]. Patient confirmed she played [place] "a few days ago" because there "really no reason not too." Patient is alert and orientated to person, place, time and circumstance. Mood is dyphoric with flat affect. patient endorses suicidal ideation, denies homicidal ideation. delusions are absent and behavior is congruent with an intact reality based presentation, ie organized and linear thought process. Eye contact is fair to poor. Conversational speech is slightly monotone as if just repeating facts that are not personal. attention and concentration are fair to poor. insight, judgment and impulse control are poor. No medication recommendations at this time Diagnosis: V62.82 (Z63.4) Uncomplicated Bereavement (mother who from Cancer unsure how old patient was, 1st /still friends February 2018 Suicide) 311 (F32.9) Unspecified Depressive Disorder Polysubstance Use 292.9 (F11.99) Unspecified Opioid Related Disorder 292.9 (F15.99) Unspecified Amphetamine or other Stimulant Related Disorder 292.9 (F14.99) Unspecified Cocaine Related Disorder 292.9 (F13.99) Unspecified sedative, hypnotic or anxiolytic Related Disorder 292.9 (F12.99) Unspecified Cannabis Related Disorder R/O V62.89 (Z65.4) Victim of crime (if being trafficked/prostituted) R/O 309.81 (F43.10) Posttraumatic Stress Disorder Impression/Plan: Recommendation IVC petition for mental health hold. Patient does deny current suicidal ideation however she discloses significant substance abuse and playing [employer] [place] "a few days ago." She is also suffered the loss of her first who she was still friends with [address] Echols was consulted and the care management of this patient; attending physician is agreement with recommendations and disposition.
== END 2018-04-27 19:30 | disposition home or self-care (01) ==
LOC: ER 12:20
DX: F32.1 Major depressive disorder, single episode, moderate (principal); F11.20 Opioid dependence, uncomplicated; F15.10 Other stimulant abuse, uncomplicated; R45.851 Suicidal ideations; R51 Headache; F17.200 Nicotine dependence, unspecified, uncomplicated; M54.5 Low back pain; G89.29 Other chronic pain
CPT/HCPCS: 93005; 99285; 36415; 80307 ×4; 85025; 81025; 86592; 80053; 81001; 86701; 87491; 87591; 80074; 93010; J3490